=== PATIENT | female | born 1960 | race African-American/Black ===

== ENCOUNTER 2018-07-02 05:27 | Inpatient (IN) ==
[2018-07-02] MEDS ORDERED: FAMOTIDINE 20 MG TABLET PO ONE (07:06)
[2018-07-02] MEDS ORDERED: DIAZEPAM 5 MG TABLET PO ONE (07:06)
[2018-07-02] MEDS ORDERED: VANCOMYCIN 1,000 MG VIAL ONE (08:22)
[2018-07-02] MEDS ORDERED: DIAZEPAM 5 MG TABLET ONE (08:22)
[2018-07-02] MEDS ORDERED: FAMOTIDINE 20 MG TABLET ONE (08:23)
[2018-07-02] MEDS ORDERED: ceFAZolin 2,000 MG in PREMIX 1 EACH IV ONE (09:00)
[2018-07-02] MEDS ORDERED: VANCOMYCIN INJ 1,000 MG in SODIUM CHLORIDE 0.9% 250 ML IV ONE (09:00)
[2018-07-02] MEDS ORDERED: ROPIVACAINE 0.5% 30 ML VIAL ONE (09:44)
[2018-07-02] MEDS: LACTATED RINGERS 1,000 ML IV SCH (10:10)
[2018-07-02] MEDS ORDERED: ZALEPLON 5 MG CAPSULE PO PRN (10:32)
[2018-07-02] MEDS ORDERED: ONDANSETRON 4 MG/2 ML VIAL IV PRN (10:32)
[2018-07-02] MEDS ORDERED: diphenhydrAMINE CAP 25 MG CAPSULE PO PRN (10:32)
[2018-07-02] MEDS ORDERED: HYDROmorphone 2 MG/1 ML VIAL IV PRN ×2 (10:32)
[2018-07-02] MEDS ORDERED: oxyCODONE IR 5 MG TABLET PO PRN (10:32)
[2018-07-02] MEDS ORDERED: PROPOFOL 200 MG/20 ML VIAL IV ONE (12:34)
[2018-07-02] MEDS ORDERED: MIDAZOLAM 2 MG/2 ML VIAL ONE (12:34)
[2018-07-02] MEDS ORDERED: ACETAMINOPHEN 1,000 MG/100 ML VIAL IV ONE (12:35)
[2018-07-02] MEDS ORDERED: ROCURONIUM 100 MG/10 ML VIAL IV ONE (12:35)
[2018-07-02] MEDS ORDERED: PHENYLEPHRINE 1 MG/10 ML SYRINGE IV ONE (12:35)
[2018-07-02] MEDS ORDERED: DEXAMETHASONE 10 MG/1 ML VIAL ONE (12:35)
[2018-07-02] MEDS ORDERED: fentaNYL 100 MCG/2 ML VIAL ONE (12:35)
[2018-07-02] MEDS ORDERED: SEVOFLURANE 1 UNIT/15 MINUTE INH ONE (12:41)
[2018-07-02 15:13] LABS: Basophils % 0.2 % (0.0-0.8); Eosinophils % 0.1 % (0.00-10.9); Hematocrit 35.4 VOL% (35.7-47.0); Hemoglobin 11.2 GM/DL (12.0-16.0); Immature Granulocytes % 0.6 %; Immature Granulocytes Absolute 0.08 #; Lymphocytes # 0.7 10*3/uL (1.4-4.0); Lymphocytes % 5.6 % (21.3-54.2); Mean Corpuscular HGB Conc 31.6 GM/DL (32-36); Mean Corpuscular Hemoglobin 32 PG (27-34); Mean Corpuscular Volume 101.4 FL (87-102); Mean Platelet Volume 10.1 FL (9.6-12.0); Monocytes # 0.2 10*3/uL (0.11-0.8); Monocytes % 1.6 % (1.7-12.7); Neutrophils # 11.8 10*3/uL (1.4-7.4); Neutrophils % 91.9 % (38.7-73.9); Platelet Count 294 T/CUMM (130-400); Red Blood Count 3.49 MC/CUMM (3.8-5.5); Red Cell Distribution Width 17.9 % (9.3-17.3); White Blood Count 12.9 T/CUMM (4-12)
[2018-07-02 15:31] LABS: Calcium 9.5 MG/DL (8.5-10.1); Osmolality,Calculated 281.4 MOS/KG (273-304); Potassium 4.4 MMOL/L (3.5-5.1)
[2018-07-02] MEDS: ACETAMINOPHEN 500 MG TABLET PO SCH ×2 (17:04→21:35)
[2018-07-02] MEDS: KETOROLAC 30 MG/1 ML VIAL IV SCH ×2 (17:05→23:36)
[2018-07-02 19:13] LABS: Lymphocytes 5 % (20-55); Segmented Neutrophils 94 % (50-85)
[2018-07-02 19:14] LABS: Hypochromasia 1+; Macrocytosis 1+
[2018-07-02 19:18] LABS: Anisocytosis 1+; Platelet Estimate Normal
[2018-07-02 19:19] LABS: Total Cells Counted 100
[2018-07-02] MEDS: ceFAZolin 2,000 MG in PREMIX 1 EACH IV SCH (19:22)
[2018-07-02] MEDS: oxyCODONE IR 5 MG TABLET PO PRN (21:35)
[2018-07-02] MEDS: sulfaSALAzine 500 MG TABLET PO SCH (21:36)
[2018-07-02] MEDS: DOCUSATE SODIUM 100 MG CAPSULE PO SCH (21:36)
[2018-07-03] MEDS: ceFAZolin 2,000 MG in PREMIX 1 EACH IV SCH (03:07)
[2018-07-03] MEDS: ACETAMINOPHEN 500 MG TABLET PO SCH ×2 (03:07→08:15)
[2018-07-03] MEDS: LACTATED RINGERS 1,000 ML IV SCH (03:43)
[2018-07-03 05:57] LABS: Basophils % 0.1 % (0.0-0.8); Hematocrit 27.4 VOL% (35.7-47.0); Immature Granulocytes % 0.6 %; Immature Granulocytes Absolute 0.06 #; Lymphocytes # 1.9 10*3/uL (1.4-4.0); Lymphocytes % 19.6 % (21.3-54.2); Mean Corpuscular HGB Conc 31.4 GM/DL (32-36); Mean Corpuscular Hemoglobin 32 PG (27-34); Mean Corpuscular Volume 101.1 FL (87-102); Mean Platelet Volume 9.7 FL (9.6-12.0); Monocytes # 1.4 10*3/uL (0.11-0.8); Neutrophils # 6.3 10*3/uL (1.4-7.4); Neutrophils % 65.7 % (38.7-73.9); Platelet Count 339 T/CUMM (130-400); Red Cell Distribution Width 17.4 % (9.3-17.3); White Blood Count 9.6 T/CUMM (4-12)
[2018-07-03] MEDS: KETOROLAC 30 MG/1 ML VIAL IV SCH ×2 (06:07→12:07)
[2018-07-03] MEDS: FONDAPARINUX 2.5 MG/0.5 ML SYRINGE SUBCUT SCH (06:07)
[2018-07-03 06:13] LABS: Red Blood Count 2.71 MC/CUMM (3.8-5.5)
[2018-07-03 06:14] LABS: Hemoglobin 8.6 GM/DL (12.0-16.0)
[2018-07-03 06:18] LABS: Calcium 8.5 MG/DL (8.5-10.1); Osmolality,Calculated 276.7 MOS/KG (273-304); Potassium 4.1 MMOL/L (3.5-5.1)
[2018-07-03] MEDS: oxyCODONE IR 5 MG TABLET PO PRN (07:30)
[2018-07-03] MEDS: sulfaSALAzine 500 MG TABLET PO SCH ×2 (08:14→22:01)
[2018-07-03] MEDS: OXYBUTYNIN 5 MG TABLET PO SCH (08:15)
[2018-07-03] MEDS: CHOLECALCIFEROL 1,000 UNIT TABLET PO SCH (08:15)
[2018-07-03] MEDS: predniSONE 5 MG TABLET PO SCH (08:15)
[2018-07-03] MEDS: DOCUSATE SODIUM 100 MG CAPSULE PO SCH ×2 (08:15→22:01)
[2018-07-03] MEDS: LISINOPRIL 20 MG TABLET PO SCH (08:16)
[2018-07-03] MEDS: FOLIC ACID 1 MG TABLET PO SCH (08:16)
[2018-07-03] MEDS: amLODIPine 2.5 MG TABLET PO SCH (08:17)
[2018-07-03] MEDS: CELECOXIB 200 MG CAPSULE PO SCH (17:07)
[2018-07-04 05:07] LABS: Basophils % 0.2 % (0.0-0.8); Eosinophils % 0.5 % (0.00-10.9); Hematocrit 24.8 VOL% (35.7-47.0); Hemoglobin 7.7 GM/DL (12.0-16.0); Immature Granulocytes % 0.3 %; Immature Granulocytes Absolute 0.03 #; Lymphocytes # 2.6 10*3/uL (1.4-4.0); Mean Corpuscular Hemoglobin 32 PG (27-34); Mean Corpuscular Volume 102.5 FL (87-102); Mean Platelet Volume 9.5 FL (9.6-12.0); Monocytes # 1.4 10*3/uL (0.11-0.8); Monocytes % 15.7 % (1.7-12.7); Neutrophils # 4.6 10*3/uL (1.4-7.4); Neutrophils % 53.3 % (38.7-73.9); Platelet Count 295 T/CUMM (130-400); Red Blood Count 2.42 MC/CUMM (3.8-5.5); Red Cell Distribution Width 17.2 % (9.3-17.3); White Blood Count 8.7 T/CUMM (4-12)
[2018-07-04 05:35] LABS: Atypical Lymphocytes Few; Eosinophils 1 % (0-10); Lymphocytes 28 % (20-55); Segmented Neutrophils 57 % (50-85); Total Cells Counted 100
[2018-07-04 05:36] LABS: Hypochromasia 1+; Macrocytosis 1+; Ovalocytes Slight
[2018-07-04] MEDS: FONDAPARINUX 2.5 MG/0.5 ML SYRINGE SUBCUT SCH (07:15)
[2018-07-04] MEDS: predniSONE 5 MG TABLET PO SCH (09:20)
[2018-07-04] MEDS: FOLIC ACID 1 MG TABLET PO SCH (09:20)
[2018-07-04] MEDS: amLODIPine 2.5 MG TABLET PO SCH (09:20)
[2018-07-04] MEDS: FERROUS SULFATE 325 MG TABLET PO SCH ×2 (09:20→20:40)
[2018-07-04] MEDS: CHOLECALCIFEROL 1,000 UNIT TABLET PO SCH (09:20)
[2018-07-04] MEDS: CELECOXIB 200 MG CAPSULE PO SCH (09:20)
[2018-07-04] MEDS: sulfaSALAzine 500 MG TABLET PO SCH ×2 (09:21→20:40)
[2018-07-04] MEDS: OXYBUTYNIN 5 MG TABLET PO SCH (09:21)
[2018-07-04] MEDS: DOCUSATE SODIUM 100 MG CAPSULE PO SCH ×2 (09:21→20:41)
[2018-07-04] MEDS: LISINOPRIL 20 MG TABLET PO SCH (09:21)
[2018-07-04] MEDS: MAGNESIUM HYDROXIDE SUSP 30 ML UDCUP PO PRN ×2 (14:58→20:41)
[2018-07-05 06:00] LABS: Basophils % 0.2 % (0.0-0.8); Eosinophils # 0.1 10*3/uL (0.0-0.87); Eosinophils % 1.4 % (0.00-10.9); Hematocrit 26.4 VOL% (35.7-47.0); Hemoglobin 8.2 GM/DL (12.0-16.0); Immature Granulocytes % 0.2 %; Immature Granulocytes Absolute 0.02 #; Lymphocytes # 2.3 10*3/uL (1.4-4.0); Lymphocytes % 26.1 % (21.3-54.2); Mean Corpuscular HGB Conc 31.1 GM/DL (32-36); Mean Corpuscular Hemoglobin 32 PG (27-34); Mean Corpuscular Volume 102.3 FL (87-102); Mean Platelet Volume 9.3 FL (9.6-12.0); Monocytes # 1.5 10*3/uL (0.11-0.8); Neutrophils # 4.8 10*3/uL (1.4-7.4); Neutrophils % 55.1 % (38.7-73.9); Platelet Count 300 T/CUMM (130-400); Red Blood Count 2.58 MC/CUMM (3.8-5.5); Red Cell Distribution Width 17.2 % (9.3-17.3); White Blood Count 8.6 T/CUMM (4-12)
[2018-07-05 06:40] LABS: Eosinophils 1 % (0-10); Lymphocytes 20 % (20-55); Platelet Estimate Adequate; Segmented Neutrophils 61 % (50-85); Total Cells Counted 100
[2018-07-05 06:41] LABS: Hypochromasia 1+; Macrocytosis Slight; Ovalocytes Slight
[2018-07-05] MEDS: FONDAPARINUX 2.5 MG/0.5 ML SYRINGE SUBCUT SCH (07:16)
[2018-07-05] MEDS ORDERED: BISACODYL 5 MG TABLET PO PRN (08:42)
[2018-07-05] MEDS: CHOLECALCIFEROL 1,000 UNIT TABLET PO SCH (09:04)
[2018-07-05] MEDS: DOCUSATE SODIUM 100 MG CAPSULE PO SCH (09:04)
[2018-07-05] MEDS: CELECOXIB 200 MG CAPSULE PO SCH (09:04)
[2018-07-05] MEDS: sulfaSALAzine 500 MG TABLET PO SCH (09:04)
[2018-07-05] MEDS: LISINOPRIL 20 MG TABLET PO SCH (09:05)
[2018-07-05] MEDS: FERROUS SULFATE 325 MG TABLET PO SCH (09:05)
[2018-07-05] MEDS: amLODIPine 2.5 MG TABLET PO SCH (09:05)
[2018-07-05] MEDS: predniSONE 5 MG TABLET PO SCH (09:05)
[2018-07-05] MEDS: OXYBUTYNIN 5 MG TABLET PO SCH (09:05)
[2018-07-05] MEDS: FOLIC ACID 1 MG TABLET PO SCH (09:05)
[2018-07-05 11:53] VITALS: BP 130/64
== END 2018-07-05 12:58 | disposition home health service (06) | DRG 470 ==
LOC: N.SDS 05:27 → N.SDSINP 05:28 → N.3E 14:30
PROVIDERS: ADMIT Orthopaedic Surgery; ATTEND Orthopaedic Surgery

== ENCOUNTER 2020-11-23 05:37 | Inpatient (IN) ==
[2020-11-23] MEDS ORDERED: VANCOMYCIN INJ 1,000 MG in SODIUM CHLORIDE 0.9% 250 ML IV ONE ×2 (06:00→15:20)
[2020-11-23] MEDS ORDERED: LIDOCAINE 2% 5 ML VIAL ONE (06:17)
[2020-11-23] MEDS ORDERED: ROCURONIUM 50 MG/5 ML VIAL IV ONE (06:17)
[2020-11-23] MEDS ORDERED: fentaNYL 100 MCG/2 ML VIAL ONE ×2 (06:17→08:01)
[2020-11-23] MEDS ORDERED: propofoL 200 MG/20 ML VIAL IV ONE (06:17)
[2020-11-23] MEDS ORDERED: MIDAZOLAM 2 MG/2 ML VIAL ONE (06:17)
[2020-11-23] MEDS ORDERED: LIDOCAINE 1% 5 ML VIAL ONE (06:19)
[2020-11-23] MEDS ORDERED: ROPIVACAINE 0.5% 30 ML VIAL ONE (06:19)
[2020-11-23] MEDS ORDERED: DEXAMETHASONE 4 MG/1 ML VIAL ONE (06:19)
[2020-11-23] MEDS ORDERED: FAMOTIDINE 20 MG/2 ML VIAL IV ONE (06:39)
[2020-11-23] MEDS ORDERED: HYDROCORTISONE 100 MG VIAL ONE (06:39)
[2020-11-23] MEDS ORDERED: BACITRACIN OINT 0.9 GM PACK TOP ONE (06:41)
[2020-11-23] MEDS ORDERED: MAGNESIUM HYDROXIDE SUSP 30 ML UDCUP PO PRN (07:19)
[2020-11-23] MEDS ORDERED: ONDANSETRON 4 MG/2 ML VIAL IV PRN ×2 (07:20→10:28)
[2020-11-23] MEDS ORDERED: HYDROmorphone 2 MG/1 ML VIAL IV PRN (07:20)
[2020-11-23] MEDS ORDERED: oxyCODONE IR 5 MG TABLET PO PRN (07:20)
[2020-11-23] MEDS ORDERED: diphenhydrAMINE CAP 25 MG CAPSULE PO PRN (07:20)
[2020-11-23] MEDS ORDERED: ZALEPLON 5 MG CAPSULE PO PRN (07:20)
[2020-11-23] MEDS ORDERED: LACTATED RINGERS 1,000 ML IV SCH (07:30)
[2020-11-23] MEDS ORDERED: SUCCINYLCHOLINE 200 MG/10 ML VIAL ONE (07:35)
[2020-11-23] MEDS ORDERED: ACETAMINOPHEN INJ 1,000 MG/100 ML VIAL IV ONE (07:35)
[2020-11-23] MEDS ORDERED: SEVOFLURANE 1 UNIT/15 MINUTE INH ONE ×10 (07:35→09:35)
[2020-11-23] MEDS ORDERED: ONDANSETRON 4 MG/2 ML VIAL ONE (07:35)
[2020-11-23] MEDS ORDERED: TRANEXAMIC ACID 1,000 MG/10 ML VIAL ONE (07:59)
[2020-11-23] MEDS ORDERED: PHENYLEPHRINE 1 MG/10 ML SYRINGE IV ONE ×2 (08:27→09:35)
[2020-11-23] MEDS ORDERED: SODIUM CHLORIDE 0.9% 250 ML IV ONE (09:16)
[2020-11-23] MEDS ORDERED: LACTATED RINGERS 1,000 ML IV ONE (09:16)
[2020-11-23] MEDS ORDERED: NEOSTIGMINE 10 MG/10 ML VIAL ONE (09:28)
[2020-11-23] MEDS ORDERED: GLYCOPYRROLATE 0.4 MG/2 ML VIAL ONE (09:28)
[2020-11-23 10:17] LABS: Bacteria,Urine Occasional /HPF (Few); Bilirubin,Urine Negative (Negative); Blood, Urine Negative (Negative); Glucose,Urine (UA) Negative (Negative); Ketones,Urine Negative (Negative); Mucus,Urine Occasional /LPF (Occasional); Nitrite,Urine Negative (Negative); Protein,Urine Negative; RBC,Urine 1 /HPF (0-4); Squamous Epithelial Cell,Urine Occasional /HPF (0-10); Urine Appearance CLEAR (Clear); Urine Color Yellow (Yellow); Urine Urobilinogen < 2.0 EU/DL (0.2-1.0)
[2020-11-23] MEDS: HYDROmorphone 2 MG/1 ML VIAL IV PRN ×4 (10:24→14:42)
[2020-11-23] MEDS: KETOROLAC 30 MG/1 ML VIAL IV SCH ×2 (11:03→17:28)
[2020-11-23] MEDS ORDERED: ceFAZolin 2,000 MG/50 ML DUPLEX IV SCH (11:30)
[2020-11-23] MEDS: LACTATED RINGERS 1,000 ML IV SCH ×3 (12:05→21:31)
[2020-11-23] MEDS: DOCUSATE SODIUM 100 MG CAPSULE PO SCH (21:23)
[2020-11-23] MEDS: APIXABAN 2.5 MG TABLET PO SCH (21:23)
[2020-11-23] MEDS: oxyCODONE/ACETAMINOPHEN 5-325 MG TABLET PO PRN (21:23)
[2020-11-23] MEDS: ceFAZolin 2,000 MG/50 ML DUPLEX IV SCH (21:24)
[2020-11-24] MEDS: KETOROLAC 30 MG/1 ML VIAL IV SCH ×2 (00:20→05:26)
[2020-11-24] MEDS: ceFAZolin 2,000 MG/50 ML DUPLEX IV SCH ×3 (05:26→20:09)
[2020-11-24] MEDS: LACTATED RINGERS 1,000 ML IV SCH (05:27)
[2020-11-24] MEDS ORDERED: KETOROLAC 30 MG/1 ML VIAL IV SCH (05:30)
[2020-11-24 05:42] LABS: Basophils % 0.2 % (0.0-0.8); Hematocrit 26.5 VOL% (35.7-47.0); Hemoglobin 8.4 GM/DL (12.0-16.0); Immature Granulocytes % 0.5 %; Immature Granulocytes Absolute 0.06 #; Lymphocytes # 1.9 10*3/uL (1.4-4.0); Lymphocytes % 14.6 % (21.3-54.2); Mean Corpuscular HGB Conc 31.7 GM/DL (32-36); Mean Corpuscular Volume 102.3 FL (87-102); Mean Platelet Volume 11.2 FL (9.6-12.0); Monocytes % 12.2 % (1.7-12.7); Neutrophils % 72.5 % (38.7-73.9); Platelet Count 228 T/CUMM (130-400); Red Blood Count 2.59 MC/CUMM (3.8-5.5); Red Cell Distribution Width 15.5 % (9.3-17.3); White Blood Count 12.7 T/CUMM (4-12)
[2020-11-24 06:00] LABS: Calcium 8.9 MG/DL (8.5-10.1); Osmolality,Calculated 278.4 MOS/KG (273-304); Potassium 4.2 MMOL/L (3.5-5.1)
[2020-11-24 06:03] LABS: Hypochromasia 1+; Microcytosis 1+; Platelet Estimate Adequate
[2020-11-24] MEDS: lisinopriL 20 MG TABLET PO SCH (08:29)
[2020-11-24] MEDS: DULoxetine 30 MG CAPSULE PO SCH (08:29)
[2020-11-24] MEDS: amLODIPine 2.5 MG TABLET PO SCH (08:29)
[2020-11-24] MEDS: DOCUSATE SODIUM 100 MG CAPSULE PO SCH ×2 (08:29→20:09)
[2020-11-24] MEDS: FOLIC ACID 1 MG TABLET PO SCH (08:29)
[2020-11-24] MEDS: APIXABAN 2.5 MG TABLET PO SCH ×2 (08:29→20:09)
[2020-11-24] MEDS: HYDROmorphone 2 MG/1 ML VIAL IV PRN ×2 (08:30→14:00)
[2020-11-24] MEDS: FUROSEMIDE 40 MG TABLET PO SCH (15:32)
[2020-11-24] MEDS: oxyCODONE/ACETAMINOPHEN 5-325 MG TABLET PO PRN (18:30)
[2020-11-25] MEDS: oxyCODONE/ACETAMINOPHEN 5-325 MG TABLET PO PRN ×2 (03:36→21:06)
[2020-11-25 04:58] LABS: Basophils % 0.3 % (0.0-0.8); Eosinophils # 0.1 10*3/uL (0.0-0.87); Eosinophils % 0.5 % (0.00-10.9); Hematocrit 23.8 VOL% (35.7-47.0); Hemoglobin 7.6 GM/DL (12.0-16.0); Immature Granulocytes % 0.4 %; Immature Granulocytes Absolute 0.04 #; Lymphocytes # 1.8 10*3/uL (1.4-4.0); Lymphocytes % 17.3 % (21.3-54.2); Mean Corpuscular HGB Conc 31.9 GM/DL (32-36); Mean Corpuscular Volume 100.8 FL (87-102); Mean Platelet Volume 10.3 FL (9.6-12.0); Monocytes % 15.1 % (1.7-12.7); Neutrophils % 66.4 % (38.7-73.9); Platelet Count 238 T/CUMM (130-400); Red Blood Count 2.36 MC/CUMM (3.8-5.5); Red Cell Distribution Width 15.5 % (9.3-17.3); White Blood Count 10.6 T/CUMM (4-12)
[2020-11-25] MEDS: ceFAZolin 2,000 MG/50 ML DUPLEX IV SCH ×3 (05:02→21:03)
[2020-11-25] MEDS: amLODIPine 2.5 MG TABLET PO SCH (08:54)
[2020-11-25] MEDS: lisinopriL 20 MG TABLET PO SCH (08:55)
[2020-11-25] MEDS: FUROSEMIDE 40 MG TABLET PO SCH ×2 (08:55→17:28)
[2020-11-25] MEDS: DULoxetine 30 MG CAPSULE PO SCH (09:00)
[2020-11-25] MEDS ORDERED: SODIUM CHLORIDE 0.9% 1,000 ML IV PRN (09:00)
[2020-11-25] MEDS: APIXABAN 2.5 MG TABLET PO SCH (09:00)
[2020-11-25] MEDS: DOCUSATE SODIUM 100 MG CAPSULE PO SCH ×2 (09:00→21:03)
[2020-11-25] MEDS ORDERED: VANCOMYCIN INJ 2,000 MG in SODIUM CHLORIDE 0.9% 500 ML IV ONE ×2 (09:00→22:00)
[2020-11-25] MEDS: FOLIC ACID 1 MG TABLET PO SCH (09:02)
[2020-11-25] MEDS ORDERED: fentaNYL 100 MCG/2 ML VIAL ONE (10:43)
[2020-11-25] MEDS ORDERED: MIDAZOLAM 2 MG/2 ML VIAL ONE (10:43)
[2020-11-25] MEDS ORDERED: ROPIVACAINE 0.5% 30 ML VIAL ONE (11:59)
[2020-11-25] MEDS ORDERED: DEXAMETHASONE 4 MG/1 ML VIAL ONE (11:59)
[2020-11-25] MEDS ORDERED: PHENYLEPHRINE 10 MG/1 ML VIAL IV ONE (13:39)
[2020-11-25] MEDS ORDERED: ceFAZolin 1,000 MG VIAL ONE (13:45)
[2020-11-25] MEDS ORDERED: SUGAMMADEX 200 MG/2 ML VIAL IV ONE (14:36)
[2020-11-25] MEDS ORDERED: SEVOFLURANE 1 UNIT/15 MINUTE INH ONE (14:37)
[2020-11-25] MEDS ORDERED: SUCCINYLCHOLINE 200 MG/10 ML VIAL ONE (14:37)
[2020-11-25] MEDS ORDERED: SODIUM CHLORIDE 0.9% 100 ML IV ONE (14:37)
[2020-11-25] MEDS ORDERED: ONDANSETRON 4 MG/2 ML VIAL ONE (14:37)
[2020-11-25] MEDS ORDERED: LACTATED RINGERS 1,000 ML IV ONE (14:37)
[2020-11-25] MEDS ORDERED: TRANEXAMIC ACID 1,000 MG/10 ML VIAL ONE (14:37)
[2020-11-25] MEDS ORDERED: propofoL 200 MG/20 ML VIAL IV ONE (14:37)
[2020-11-25] MEDS ORDERED: LIDOCAINE 2% 5 ML VIAL ONE (14:37)
[2020-11-25] MEDS ORDERED: ROCURONIUM 50 MG/5 ML VIAL IV ONE (14:37)
[2020-11-25] MEDS ORDERED: SODIUM CHLORIDE 0.9% 250 ML IV ONE (14:37)
[2020-11-25] MEDS ORDERED: HYDROmorphone 2 MG/1 ML VIAL ONE (14:55)
[2020-11-25] MEDS ORDERED: MEPERIDINE 25 MG/1 ML VIAL IV PRN (15:29)
[2020-11-25 16:40] LABS: Hematocrit 36.3 VOL% (35.7-47.0); Hemoglobin 11.8 GM/DL (12.0-16.0)
[2020-11-25] MEDS: LACTATED RINGERS 1,000 ML IV SCH (16:45)
[2020-11-26] MEDS: ceFAZolin 2,000 MG/50 ML DUPLEX IV SCH (05:22)
[2020-11-26] MEDS: LACTATED RINGERS 1,000 ML IV SCH (05:27)
[2020-11-26 06:16] LABS: Basophils % 0.1 % (0.0-0.8); Hematocrit 32.5 VOL% (35.7-47.0); Hemoglobin 10.6 GM/DL (12.0-16.0); Immature Granulocytes % 0.6 %; Immature Granulocytes Absolute 0.08 #; Mean Corpuscular HGB Conc 32.6 GM/DL (32-36); Mean Corpuscular Volume 96.4 FL (87-102); Mean Platelet Volume 10.2 FL (9.6-12.0); Monocytes % 10.8 % (1.7-12.7); Neutrophils % 81.5 % (38.7-73.9); Platelet Count 205 T/CUMM (130-400); Red Blood Count 3.37 MC/CUMM (3.8-5.5); Red Cell Distribution Width 15.2 % (9.3-17.3); White Blood Count 14.2 T/CUMM (4-12)
[2020-11-26] MEDS: FUROSEMIDE 40 MG TABLET PO SCH ×2 (08:32→16:17)
[2020-11-26] MEDS: FOLIC ACID 1 MG TABLET PO SCH (08:32)
[2020-11-26] MEDS: DOCUSATE SODIUM 100 MG CAPSULE PO SCH ×2 (08:32→20:54)
[2020-11-26] MEDS: DULoxetine 30 MG CAPSULE PO SCH (08:32)
[2020-11-26] MEDS: amLODIPine 2.5 MG TABLET PO SCH (08:32)
[2020-11-26] MEDS: HYDROmorphone 2 MG/1 ML VIAL IV PRN (08:33)
[2020-11-26] MEDS: lisinopriL 20 MG TABLET PO SCH (08:33)
[2020-11-26] MEDS: APIXABAN 2.5 MG TABLET PO SCH ×2 (09:44→20:54)
[2020-11-26] MEDS: oxyCODONE/ACETAMINOPHEN 5-325 MG TABLET PO PRN ×3 (11:44→23:52)
[2020-11-26] MEDS: CALCIUM (CARBONATE) 500 MG TABLET PO SCH (16:17)
[2020-11-27] MEDS: lisinopriL 20 MG TABLET PO SCH (08:22)
[2020-11-27] MEDS: APIXABAN 2.5 MG TABLET PO SCH (08:22)
[2020-11-27] MEDS: CALCIUM (CARBONATE) 500 MG TABLET PO SCH (08:22)
[2020-11-27] MEDS: DOCUSATE SODIUM 100 MG CAPSULE PO SCH (08:22)
[2020-11-27] MEDS: FUROSEMIDE 40 MG TABLET PO SCH (08:22)
[2020-11-27] MEDS: amLODIPine 2.5 MG TABLET PO SCH (08:22)
[2020-11-27] MEDS: FOLIC ACID 1 MG TABLET PO SCH (08:22)
[2020-11-27] MEDS: DULoxetine 30 MG CAPSULE PO SCH (08:22)
[2020-11-27] MEDS: HYDROmorphone 2 MG/1 ML VIAL IV PRN (08:40)
[2020-11-27 11:29] VITALS: BP 128/84
== END 2020-11-27 13:13 | disposition home health service (06) | DRG 467 ==
LOC: N.OR 05:37 → N.SDSINP 05:39 → N.3E 13:10
PROVIDERS: ADMIT Orthopaedic Surgery; ATTEND Orthopaedic Surgery

== ENCOUNTER 2021-06-09 09:35 | Inpatient (IN) ==
[2021-06-09] MEDS ORDERED: cefTRIAXone 1,000 MG in SODIUM CHLORIDE 0.9% 100 ML IV STA (09:37)
[2021-06-09] MEDS ORDERED: AZITHROMYCIN INJ 500 MG in SODIUM CHLORIDE 0.9% 250 ML IV STA (09:37)
[2021-06-09] MEDS ORDERED: FUROSEMIDE 40 MG/4 ML VIAL ONE (09:56)
[2021-06-09] MEDS ORDERED: ALBUTEROL/IPRATROPIUM 3 ML NEB RESP TX STA (09:57)
[2021-06-09 10:13] LABS: Basophils % 0.1 % (0.0-0.8); Eosinophils % 0.1 % (0.00-10.9); Hematocrit 22.6 VOL% (35.7-47.0); Hemoglobin 7.3 GM/DL (12.0-16.0); Immature Granulocytes % 1.5 %; Immature Granulocytes Absolute 0.22 #; Lymphocytes # 2.5 10*3/uL (1.4-4.0); Lymphocytes % 16.2 % (21.3-54.2); Mean Corpuscular HGB Conc 32.3 GM/DL (32-36); Mean Corpuscular Volume 101.8 FL (87-102); Mean Platelet Volume 10.5 FL (9.6-12.0); Monocytes % 8.2 % (1.7-12.7); NRBC # 0.18 10*3/uL; Neutrophils % 73.9 % (38.7-73.9); Platelet Count 501 T/CUMM (130-400); Red Blood Count 2.22 MC/CUMM (3.8-5.5); Red Cell Distribution Width 14.7 % (9.3-17.3); White Blood Count 15.2 T/CUMM (4-12)
[2021-06-09 10:37] LABS: Albumin 2.6 G/DL (3.4-5.0); Bilirubin,Total 0.6 MG/DL (0.20-1.00); Calcium 9.1 MG/DL (8.5-10.1); Osmolality,Calculated 288.3 MOS/KG (273-304); Potassium 4.8 MMOL/L (3.5-5.1); Total Protein 7.8 G/DL (6.4-8.2)
[2021-06-09] MEDS ORDERED: SODIUM CHLORIDE 0.9% 1,000 ML IV PRN ×2 (10:37→15:39)
[2021-06-09] MEDS ORDERED: ALBUTEROL 2.5 MG/3 ML NEB RESP TX PRN (11:06)
[2021-06-09] MEDS ORDERED: guaiFENesin/DM ER 600-30 MG TABLET PO PRN (11:06)
[2021-06-09] MEDS ORDERED: MELATONIN 3 MG TABLET PO PRN (11:09)
[2021-06-09] MEDS ORDERED: GLUCAGON 1 MG VIAL IM PRN (11:09)
[2021-06-09] MEDS ORDERED: DEXTROSE 10% 25 GM/250 ML BAG IV PRN (11:13)
[2021-06-09] MEDS ORDERED: ROCURONIUM 100 MG/10 ML VIAL IV ONE (11:40)
[2021-06-09] MEDS ORDERED: ETOMIDATE 20 MG/10 ML VIAL IV ONE (11:40)
[2021-06-09 11:43] LABS: ABG Oxygen Saturation 90.9 % (95-100)
[2021-06-09 11:44] LABS: ABG Base Excess -3.2 MMOL/L (-2.5-2.5); ABG HCO3 21.6 MMOL/L (20-26); ABG PCO2 26.8 MM HG (35-48); ABG PH 7.465 (7.35-7.45); ABG PO2 66.5 MM HG (80-95)
[2021-06-09] MEDS ORDERED: fentaNYL INJ 1,250 MCG in SODIUM CHLORIDE 0.9% 225 ML IV PRN (13:33)
[2021-06-09] MEDS ORDERED: VANCOMYCIN INJ 1,500 MG in SODIUM CHLORIDE 0.9% 500 ML IV SCH (15:00)
[2021-06-09] MEDS: CEFEPIME 1,000 MG in SODIUM CHLORIDE 0.9% 100 ML IV SCH ×2 (15:30→20:33)
[2021-06-09] MEDS: ACETAMINOPHEN 325 MG TABLET PO PRN (15:30)
[2021-06-09] MEDS: methylPREDNISolone SOD SUC 40 MG/1 ML VIAL IV SCH ×2 (15:30→20:30)
[2021-06-09] MEDS: metroNIDAZOLE INJ 500 MG/100 ML PREMIX IV SCH ×2 (15:30→22:14)
[2021-06-09] MEDS: ENOXAPARIN 60 MG/0.6 ML SYRINGE SUBCUT SCH (15:30)
[2021-06-09] MEDS: FAMOTIDINE 20 MG/2 ML VIAL IV SCH ×2 (15:30→22:37)
[2021-06-09] MEDS: INSULIN REGULAR 100 UNIT/ML SUBCUT SCH ×2 (15:43→18:15)
[2021-06-09] MEDS ORDERED: FUROSEMIDE 40 MG/4 ML VIAL IV SCH (16:00)
[2021-06-09 17:43] LABS: Ferritin 809.9 ng/mL (8-252); Free T4 (Free Thyroxine) 1.11 NG/DL (0.76-1.46); Thyroid Stimulating Hormone 4.49 uIU/ml (0.358-3.74)
[2021-06-09] MEDS ORDERED: NOREPINEPHRINE 8 MG in SODIUM CHLORIDE 0.9% 242 ML IV PRN (17:48)
[2021-06-09 18:20] LABS: Basophils % 0.1 % (0.0-0.8); Hematocrit 32.9 VOL% (35.7-47.0); Hemoglobin 10.6 GM/DL (12.0-16.0); Immature Granulocytes % 1.3 %; Immature Granulocytes Absolute 0.19 #; Lymphocytes % 7.2 % (21.3-54.2); Mean Corpuscular HGB Conc 32.2 GM/DL (32-36); Mean Corpuscular Volume 100.6 FL (87-102); Mean Platelet Volume 9.8 FL (9.6-12.0); Monocytes % 4.3 % (1.7-12.7); NRBC # 0.25 10*3/uL; Neutrophils % 87.1 % (38.7-73.9); Platelet Count 240 T/CUMM (130-400); Red Blood Count 3.27 MC/CUMM (3.8-5.5); Red Cell Distribution Width 14.8 % (9.3-17.3); White Blood Count 14.4 T/CUMM (4-12)
[2021-06-09 19:24] LABS: Sedimentation Rate-Westergren 108 MM/HR (0-30)
[2021-06-09] MEDS: ASCORBIC ACID 500 MG TABLET PO SCH (20:39)
[2021-06-09 23:42] LABS: Folate 22.41 NG/ML (5.38-24.0); Vitamin B12 1695 PG/ML (211-911)
[2021-06-10] MEDS: INSULIN REGULAR 100 UNIT/ML SUBCUT SCH ×4 (00:19→17:40)
[2021-06-10] MEDS: ENOXAPARIN 60 MG/0.6 ML SYRINGE SUBCUT SCH (00:19)
[2021-06-10] MEDS ORDERED: FUROSEMIDE 40 MG/4 ML VIAL IV ONE (01:43)
[2021-06-10 04:24] LABS: Allen Test Positive; Pt O2 Delivery Device Ventilator
[2021-06-10 04:25] LABS: ABG Base Excess -0.5 MMOL/L (-2.5-2.5); ABG HCO3 22.7 MMOL/L (20-26); ABG Oxygen Saturation 97.7 % (95-100); ABG PCO2 33.2 MM HG (35-48); ABG PH 7.452 (7.35-7.45); ABG PO2 108.1 MM HG (80-95); ABG TCO2 23.7 MMOL/L (23-27)
[2021-06-10 04:43] LABS: Basophils % 0.1 % (0.0-0.8); Hematocrit 34.1 VOL% (35.7-47.0); Hemoglobin 10.9 GM/DL (12.0-16.0); Immature Granulocytes % 1.1 %; Immature Granulocytes Absolute 0.17 #; Lymphocytes # 1.1 10*3/uL (1.4-4.0); Mean Corpuscular Volume 100.3 FL (87-102); Mean Platelet Volume 9.8 FL (9.6-12.0); Monocytes % 3.2 % (1.7-12.7); NRBC # 0.27 10*3/uL; Neutrophils % 88.6 % (38.7-73.9); Platelet Count 239 T/CUMM (130-400); Red Cell Distribution Width 14.7 % (9.3-17.3); White Blood Count 15.1 T/CUMM (4-12)
[2021-06-10] MEDS: methylPREDNISolone SOD SUC 40 MG/1 ML VIAL IV SCH ×3 (04:49→20:12)
[2021-06-10] MEDS: CEFEPIME 1,000 MG in SODIUM CHLORIDE 0.9% 100 ML IV SCH ×3 (04:50→20:11)
[2021-06-10 05:06] LABS: Albumin 2.2 G/DL (3.4-5.0); Bilirubin,Total 1.7 MG/DL (0.20-1.00); Calcium 8.7 MG/DL (8.5-10.1); Ferritin 1000.5 ng/mL (8-252); Osmolality,Calculated 297.4 MOS/KG (273-304); Potassium 3.7 MMOL/L (3.5-5.1); Total Protein 7.6 G/DL (6.4-8.2)
[2021-06-10] MEDS: metroNIDAZOLE INJ 500 MG/100 ML PREMIX IV SCH ×3 (05:45→21:11)
[2021-06-10] MEDS ORDERED: amLODIPine 2.5 MG TABLET PO SCH (09:00)
[2021-06-10 09:26] LABS: Hemoglobin A1 (Alkaline) 97.8 % (96.5-98.5); Hemoglobin A2 (Alkaline) 2.2 % (1.5-3.5)
[2021-06-10] MEDS: ZINC GLUCONATE 50 MG TABLET PO SCH (09:47)
[2021-06-10] MEDS: FAMOTIDINE 20 MG/2 ML VIAL IV SCH (09:47)
[2021-06-10] MEDS: ASCORBIC ACID 500 MG TABLET PO SCH ×2 (09:48→20:11)
[2021-06-10] MEDS: CHOLECALCIFEROL 1,000 UNIT TABLET PO SCH (09:48)
[2021-06-10] MEDS: SODIUM CHLORIDE 0.9% 1,000 ML IV SCH ×2 (09:48→20:08)
[2021-06-11] MEDS: MORPHINE 2 MG/1 ML SYRINGE IV PRN ×2 (00:14→08:15)
[2021-06-11] MEDS: ENOXAPARIN 60 MG/0.6 ML SYRINGE SUBCUT SCH (00:14)
[2021-06-11] MEDS: INSULIN REGULAR 100 UNIT/ML SUBCUT SCH ×4 (00:20→17:19)
[2021-06-11] MEDS: methylPREDNISolone SOD SUC 40 MG/1 ML VIAL IV SCH ×3 (03:54→21:24)
[2021-06-11] MEDS: CEFEPIME 1,000 MG in SODIUM CHLORIDE 0.9% 100 ML IV SCH ×3 (03:59→21:24)
[2021-06-11 04:02] LABS: ABG Base Excess 0.1 MMOL/L (-2.5-2.5); ABG HCO3 24.4 MMOL/L (20-26); ABG Oxygen Saturation 92.5 % (95-100); ABG PCO2 33.7 MM HG (35-48); ABG PH 7.453 (7.35-7.45); ABG PO2 67.4 MM HG (80-95); ABG TCO2 21.6 MMOL/L (23-27)
[2021-06-11 05:25] LABS: Basophils % 0.1 % (0.0-0.8); Hematocrit 29.1 VOL% (35.7-47.0); Hemoglobin 9.5 GM/DL (12.0-16.0); Immature Granulocytes % 2.3 %; Immature Granulocytes Absolute 0.49 #; Lymphocytes # 0.6 10*3/uL (1.4-4.0); Lymphocytes % 2.8 % (21.3-54.2); Mean Corpuscular HGB Conc 32.6 GM/DL (32-36); Mean Corpuscular Volume 99.3 FL (87-102); Mean Platelet Volume 11.2 FL (9.6-12.0); NRBC # 0.62 10*3/uL; Neutrophils % 91.8 % (38.7-73.9); Platelet Count 174 T/CUMM (130-400); Red Blood Count 2.93 MC/CUMM (3.8-5.5); Red Cell Distribution Width 14.8 % (9.3-17.3); White Blood Count 21.4 T/CUMM (4-12)
[2021-06-11 05:40] LABS: Calcium 8.6 MG/DL (8.5-10.1); Osmolality,Calculated 299.3 MOS/KG (273-304); Potassium 3.8 MMOL/L (3.5-5.1)
[2021-06-11] MEDS: metroNIDAZOLE INJ 500 MG/100 ML PREMIX IV SCH (05:46)
[2021-06-11 05:51] LABS: Hypochromia Slight; Lymphocytes 1 % (20-55); Nucleated Red Blood Cells 5 (0-5); Platelet Estimate Normal; Segmented Neutrophils 98 % (50-85); Total Cells Counted 100
[2021-06-11] MEDS: SODIUM CHLORIDE 0.9% 1,000 ML IV SCH (07:36)
[2021-06-11] MEDS: ZINC GLUCONATE 50 MG TABLET PO SCH (08:14)
[2021-06-11] MEDS: CHOLECALCIFEROL 1,000 UNIT TABLET PO SCH (08:14)
[2021-06-11] MEDS: FAMOTIDINE 20 MG/2 ML VIAL IV SCH (08:14)
[2021-06-11] MEDS: ASCORBIC ACID 500 MG TABLET PO SCH ×2 (08:14→21:16)
[2021-06-11] MEDS: amLODIPine 10 MG TABLET PO SCH (08:29)
[2021-06-11] MEDS: metroNIDAZOLE 500 MG TABLET PO SCH ×3 (08:33→21:16)
[2021-06-11 08:42] LABS: ABG Base Excess -0.2 MMOL/L (-2.5-2.5); ABG HCO3 24.2 MMOL/L (20-26); ABG Oxygen Saturation 90.7 % (95-100); ABG PCO2 33.3 MM HG (35-48); ABG PH 7.453 (7.35-7.45); ABG PO2 62.1 MM HG (80-95); ABG TCO2 21.2 MMOL/L (23-27)
[2021-06-11] MEDS ORDERED: FUROSEMIDE 40 MG/4 ML VIAL IV ONE (08:48)
[2021-06-11] MEDS ORDERED: INSULIN GLARGINE 100 UNIT/ML SUBCUT SCH (09:00)
[2021-06-11] MEDS: hydrALAZINE 20 MG/1 ML VIAL IV PRN ×2 (15:05→22:00)
[2021-06-11 15:56] LABS: ABG Base Excess 3.7 MMOL/L (-2.5-2.5); ABG HCO3 27.7 MMOL/L (20-26); ABG Oxygen Saturation 96.2 % (95-100); ABG PH 7.512 (7.35-7.45); ABG PO2 80.1 MM HG (80-95); ABG TCO2 23.7 MMOL/L (23-27); Allen Test Positive; Pt O2 Delivery Device BIPAP
[2021-06-11 17:08] LABS: Bacteria,Urine Occasional /HPF (Few); Bilirubin,Urine Negative (Negative); Blood, Urine Small mg/dL (Negative); Glucose,Urine (UA) Negative (Negative); Hyaline Casts,Urine 13 /LPF (0-3); Ketones,Urine Negative (Negative); Mucus,Urine Occasional /LPF (Occasional); Nitrite,Urine Negative (Negative); Protein,Urine 30 MG/DL; RBC,Urine 74 /HPF (0-4); Urine Appearance CLEAR (Clear); Urine Color Yellow (Yellow); Urine Specific Gravity 1.018 (1.001-1.035); Urine Urobilinogen < 2.0 EU/DL (<2.0)
[2021-06-11] MEDS ORDERED: LORazepam 2 MG/1 ML VIAL ONE (22:23)
[2021-06-11] MEDS: LORazepam 2 MG/1 ML VIAL IV PRN (22:25)
[2021-06-12] MEDS: INSULIN REGULAR 100 UNIT/ML SUBCUT SCH ×4 (00:39→18:48)
[2021-06-12] MEDS: ENOXAPARIN 60 MG/0.6 ML SYRINGE SUBCUT SCH ×2 (01:13→20:49)
[2021-06-12 04:04] LABS: Basophils % 0.1 % (0.0-0.8); Hemoglobin 10.2 GM/DL (12.0-16.0); Immature Granulocytes % 3.1 %; Immature Granulocytes Absolute 0.74 #; Mean Corpuscular HGB Conc 32.9 GM/DL (32-36); Mean Platelet Volume 11.3 FL (9.6-12.0); NRBC # 1.23 10*3/uL; Neutrophils % 88.8 % (38.7-73.9); Platelet Count 193 T/CUMM (130-400); Red Blood Count 3.13 MC/CUMM (3.8-5.5); Red Cell Distribution Width 14.9 % (9.3-17.3)
[2021-06-12 04:22] LABS: Calcium 8.9 MG/DL (8.5-10.1); Ferritin 757.5 ng/mL (8-252); Osmolality,Calculated 302.7 MOS/KG (273-304); Potassium 3.3 MMOL/L (3.5-5.1)
[2021-06-12] MEDS: methylPREDNISolone SOD SUC 40 MG/1 ML VIAL IV SCH ×2 (04:31→15:43)
[2021-06-12] MEDS: CEFEPIME 1,000 MG in SODIUM CHLORIDE 0.9% 100 ML IV SCH ×3 (04:31→20:49)
[2021-06-12 04:50] LABS: ABG Base Excess 3.2 MMOL/L (-2.5-2.5); ABG HCO3 27.2 MMOL/L (20-26); ABG Oxygen Saturation 95.4 % (95-100); ABG PCO2 37.1 MM HG (35-48); ABG PH 7.468 (7.35-7.45); ABG PO2 78.1 MM HG (80-95); ABG TCO2 23.9 MMOL/L (23-27); Allen Test Positive; Pt O2 Delivery Device BIPAP
[2021-06-12 05:00] LABS: Lymphocytes 3 % (20-55); Nucleated Red Blood Cells 6 (0-5); Segmented Neutrophils 96 % (50-85); Total Cells Counted 100
[2021-06-12 05:03] LABS: Platelet Estimate Normal; Polychromasia Slight
[2021-06-12 05:04] LABS: Macrocytosis Slight
[2021-06-12 05:05] LABS: Schistocytes Few
[2021-06-12] MEDS ORDERED: HALOPERIDOL 5 MG/ML AMP IM ONE (07:45)
[2021-06-12] MEDS ORDERED: FUROSEMIDE 40 MG/4 ML VIAL IV ONE (08:44)
[2021-06-12] MEDS: FAMOTIDINE 20 MG/2 ML VIAL IV SCH ×2 (09:11→20:50)
[2021-06-12] MEDS: metroNIDAZOLE 500 MG TABLET PO SCH ×3 (09:31→20:49)
[2021-06-12] MEDS: amLODIPine 10 MG TABLET PO SCH (09:32)
[2021-06-12] MEDS: ASCORBIC ACID 500 MG TABLET PO SCH ×2 (09:32→20:50)
[2021-06-12] MEDS: CHOLECALCIFEROL 1,000 UNIT TABLET PO SCH (09:33)
[2021-06-12] MEDS: ZINC GLUCONATE 50 MG TABLET PO SCH (09:33)
[2021-06-12] MEDS: LORazepam 2 MG/1 ML VIAL IV PRN (10:59)
[2021-06-12] MEDS: ALBUTEROL/IPRATROPIUM 3 ML NEB RESP TX SCH ×2 (13:15→20:10)
[2021-06-12 13:38] LABS: ABG Base Excess 2.2 MMOL/L (-2.5-2.5); ABG HCO3 26.3 MMOL/L (20-26); ABG Oxygen Saturation 96.2 % (95-100); ABG PCO2 39.5 MM HG (35-48); ABG PH 7.434 (7.35-7.45); ABG PO2 86.4 MM HG (80-95); ABG TCO2 23.8 MMOL/L (23-27); Allen Test Positive; Pt O2 Delivery Device BIPAP
[2021-06-12] MEDS: DEXMEDETOMIDINE 200 MCG in SODIUM CHLORIDE 0.9% 48 ML IV PRN ×2 (13:41→20:49)
[2021-06-12] MEDS: CITALOPRAM 20 MG TABLET PO SCH (15:42)
[2021-06-12] MEDS: POTASSIUM BICARB EFFERVESCENT 20 MEQ TAB.EFF PER TUBE PRN (15:42)
[2021-06-12] MEDS ORDERED: ENOXAPARIN 60 MG/0.6 ML SYRINGE SUBCUT SCH (18:00)
[2021-06-12] MEDS: QUEtiapine 25 MG TABLET PO SCH (20:50)
[2021-06-13] MEDS: ALBUTEROL/IPRATROPIUM 3 ML NEB RESP TX SCH ×4 (00:10→18:06)
[2021-06-13] MEDS: INSULIN REGULAR 100 UNIT/ML SUBCUT SCH ×4 (00:48→18:14)
[2021-06-13] MEDS ORDERED: FUROSEMIDE 20 MG/2 ML VIAL IV ONE (01:02)
[2021-06-13] MEDS: DEXMEDETOMIDINE 200 MCG in SODIUM CHLORIDE 0.9% 48 ML IV PRN ×2 (01:57→07:58)
[2021-06-13 03:31] LABS: ABG Base Excess 4.9 MMOL/L (-2.5-2.5); ABG HCO3 28.4 MMOL/L (20-26); ABG Oxygen Saturation 92.6 % (95-100); ABG PCO2 37.4 MM HG (35-48); ABG PH 7.498 (7.35-7.45); ABG PO2 65.3 MM HG (80-95); ABG TCO2 29.5 MMOL/L (23-27)
[2021-06-13] MEDS: methylPREDNISolone SOD SUC 40 MG/1 ML VIAL IV SCH ×2 (03:57→15:40)
[2021-06-13] MEDS: CEFEPIME 1,000 MG in SODIUM CHLORIDE 0.9% 100 ML IV SCH ×3 (04:10→20:42)
[2021-06-13 04:38] LABS: Basophils % 0.1 % (0.0-0.8); Hematocrit 29.9 VOL% (35.7-47.0); Hemoglobin 9.5 GM/DL (12.0-16.0); Immature Granulocytes % 4.4 %; Immature Granulocytes Absolute 0.72 #; Lymphocytes # 0.9 10*3/uL (1.4-4.0); Lymphocytes % 5.2 % (21.3-54.2); Mean Corpuscular HGB Conc 31.8 GM/DL (32-36); Mean Platelet Volume 10.9 FL (9.6-12.0); Monocytes % 4.3 % (1.7-12.7); NRBC # 0.66 10*3/uL; Platelet Count 209 T/CUMM (130-400); Red Blood Count 2.93 MC/CUMM (3.8-5.5); White Blood Count 16.2 T/CUMM (4-12)
[2021-06-13 04:51] LABS: Albumin 2.3 G/DL (3.4-5.0); Bilirubin,Total 0.8 MG/DL (0.20-1.00); Calcium 8.9 MG/DL (8.5-10.1); Ferritin 677.7 ng/mL (8-252); Osmolality,Calculated 314.1 MOS/KG (273-304); Potassium 3.5 MMOL/L (3.5-5.1); Total Protein 6.8 G/DL (6.4-8.2)
[2021-06-13 05:04] LABS: Band Neutrophils 2 % (0-10); Hypochromia 1+; Lymphocytes 4 % (20-55); Nucleated Red Blood Cells 5 (0-5); Segmented Neutrophils 93 % (50-85); Total Cells Counted 100
[2021-06-13 05:05] LABS: Macrocytosis Slight; Polychromasia Slight; Target Cells Few
[2021-06-13] MEDS: POTASSIUM BICARB EFFERVESCENT 20 MEQ TAB.EFF PER TUBE PRN ×2 (05:28→10:01)
[2021-06-13] MEDS: LORazepam 2 MG/1 ML VIAL IV PRN ×2 (06:08→15:40)
[2021-06-13] MEDS ORDERED: OLANZapine 10 MG VIAL IM ONE (09:05)
[2021-06-13] MEDS: CITALOPRAM 20 MG TABLET PO SCH (10:00)
[2021-06-13] MEDS: ENOXAPARIN 60 MG/0.6 ML SYRINGE SUBCUT SCH ×2 (10:00→20:41)
[2021-06-13] MEDS: ZINC GLUCONATE 50 MG TABLET PO SCH (10:00)
[2021-06-13] MEDS: ASCORBIC ACID 500 MG TABLET PO SCH ×2 (10:00→20:42)
[2021-06-13] MEDS: CHOLECALCIFEROL 1,000 UNIT TABLET PO SCH (10:00)
[2021-06-13] MEDS: metroNIDAZOLE 500 MG TABLET PO SCH ×3 (10:00→20:42)
[2021-06-13] MEDS: FAMOTIDINE 20 MG/2 ML VIAL IV SCH ×2 (10:00→20:43)
[2021-06-13] MEDS: amLODIPine 10 MG TABLET PO SCH (10:00)
[2021-06-13] MEDS: QUEtiapine 25 MG TABLET PO SCH ×3 (10:00→21:52)
[2021-06-13] MEDS: FOLIC ACID 1 MG TABLET PO SCH (10:00)
[2021-06-13] MEDS: DEXMEDETOMIDINE 400 MCG in SODIUM CHLORIDE 0.9% 96 ML IV PRN (15:21)
[2021-06-14] MEDS: ALBUTEROL/IPRATROPIUM 3 ML NEB RESP TX SCH ×4 (00:15→19:40)
[2021-06-14] MEDS: INSULIN REGULAR 100 UNIT/ML SUBCUT SCH ×4 (00:34→19:40)
[2021-06-14] MEDS: DEXMEDETOMIDINE 400 MCG in SODIUM CHLORIDE 0.9% 96 ML IV PRN ×2 (01:39→12:42)
[2021-06-14] MEDS: methylPREDNISolone SOD SUC 40 MG/1 ML VIAL IV SCH ×3 (03:54→17:42)
[2021-06-14] MEDS: CEFEPIME 1,000 MG in SODIUM CHLORIDE 0.9% 100 ML IV SCH ×3 (04:23→21:47)
[2021-06-14 04:28] LABS: Basophils % 0.1 % (0.0-0.8); Hematocrit 32.6 VOL% (35.7-47.0); Hemoglobin 10.1 GM/DL (12.0-16.0); Lymphocytes # 0.6 10*3/uL (1.4-4.0); Lymphocytes % 3.6 % (21.3-54.2); Mean Corpuscular Volume 102.8 FL (87-102); Mean Platelet Volume 11.1 FL (9.6-12.0); NRBC # 0.33 10*3/uL; Neutrophils % 88.3 % (38.7-73.9); Platelet Count 254 T/CUMM (130-400); Red Blood Count 3.17 MC/CUMM (3.8-5.5); Red Cell Distribution Width 15.3 % (9.3-17.3); White Blood Count 15.9 T/CUMM (4-12)
[2021-06-14 04:44] LABS: Calcium 9.2 MG/DL (8.5-10.1); Osmolality,Calculated 319.7 MOS/KG (273-304); Potassium 3.8 MMOL/L (3.5-5.1)
[2021-06-14 04:54] LABS: ABG Base Excess 1.8 MMOL/L (-2.5-2.5); ABG HCO3 24.3 MMOL/L (20-26); ABG Oxygen Saturation 89.8 % (95-100); ABG PCO2 30.6 MM HG (35-48); ABG PH 7.517 (7.35-7.45); ABG PO2 56.1 MM HG (80-95); ABG TCO2 25.2 MMOL/L (23-27)
[2021-06-14 05:03] LABS: Hypochromia 1+; Lymphocytes 8 % (20-55); Microcytosis 1+; Nucleated Red Blood Cells 2 (0-5); Platelet Estimate Adequate; Segmented Neutrophils 90 % (50-85); Total Cells Counted 100
[2021-06-14] MEDS: LORazepam 2 MG/1 ML VIAL IV PRN ×2 (06:08→23:50)
[2021-06-14] MEDS: ENOXAPARIN 60 MG/0.6 ML SYRINGE SUBCUT SCH ×2 (08:20→21:46)
[2021-06-14] MEDS: FAMOTIDINE 20 MG/2 ML VIAL IV SCH ×2 (08:21→21:46)
[2021-06-14] MEDS: CHOLECALCIFEROL 1,000 UNIT TABLET PO SCH (08:22)
[2021-06-14] MEDS: FOLIC ACID 1 MG TABLET PO SCH (08:22)
[2021-06-14] MEDS: metroNIDAZOLE 500 MG TABLET PO SCH ×3 (08:22→21:46)
[2021-06-14] MEDS: QUEtiapine 25 MG TABLET PO SCH ×3 (08:22→22:03)
[2021-06-14] MEDS: CITALOPRAM 20 MG TABLET PO SCH (08:23)
[2021-06-14] MEDS: ZINC GLUCONATE 50 MG TABLET PO SCH (08:23)
[2021-06-14] MEDS: amLODIPine 10 MG TABLET PO SCH (08:23)
[2021-06-14] MEDS: ASCORBIC ACID 500 MG TABLET PO SCH ×2 (08:23→21:47)
[2021-06-14] MEDS ORDERED: FUROSEMIDE 40 MG/4 ML VIAL IV ONE (08:52)
[2021-06-14] MEDS ORDERED: METOPROLOL TARTRATE 5 MG/5 ML VIAL IV ONE (14:52)
[2021-06-15] MEDS: DEXMEDETOMIDINE 400 MCG in SODIUM CHLORIDE 0.9% 96 ML IV PRN ×2 (00:14→21:06)
[2021-06-15] MEDS: INSULIN REGULAR 100 UNIT/ML SUBCUT SCH ×5 (00:40→23:29)
[2021-06-15] MEDS: ALBUTEROL/IPRATROPIUM 3 ML NEB RESP TX SCH ×4 (00:55→19:17)
[2021-06-15] MEDS: methylPREDNISolone SOD SUC 40 MG/1 ML VIAL IV SCH ×3 (01:50→18:25)
[2021-06-15 04:01] LABS: Basophils % 0.1 % (0.0-0.8); Hematocrit 30.9 VOL% (35.7-47.0); Hemoglobin 9.6 GM/DL (12.0-16.0); Immature Granulocytes % 2.4 %; Immature Granulocytes Absolute 0.41 #; Lymphocytes # 0.4 10*3/uL (1.4-4.0); Lymphocytes % 2.5 % (21.3-54.2); Mean Corpuscular HGB Conc 31.1 GM/DL (32-36); Mean Platelet Volume 11.1 FL (9.6-12.0); Monocytes % 1.6 % (1.7-12.7); NRBC # 0.23 10*3/uL; Neutrophils % 93.4 % (38.7-73.9); Platelet Count 269 T/CUMM (130-400); Red Blood Count 2.97 MC/CUMM (3.8-5.5); Red Cell Distribution Width 15.6 % (9.3-17.3); White Blood Count 17.1 T/CUMM (4-12)
[2021-06-15] MEDS: CEFEPIME 1,000 MG in SODIUM CHLORIDE 0.9% 100 ML IV SCH ×3 (04:01→20:37)
[2021-06-15 04:15] LABS: Calcium 9.2 MG/DL (8.5-10.1); Potassium 4.3 MMOL/L (3.5-5.1)
[2021-06-15 04:21] LABS: Hypochromia 1+; Lymphocytes 3 % (20-55); Nucleated Red Blood Cells 2 (0-5); Ovalocytes Slight; Segmented Neutrophils 92 % (50-85); Target Cells Slight; Total Cells Counted 100
[2021-06-15 04:22] LABS: Microcytosis 1+; Polychromasia Slight
[2021-06-15 07:44] LABS: ABG Base Excess 2.5 MMOL/L (-2.5-2.5); ABG HCO3 26.7 MMOL/L (20-26); ABG Oxygen Saturation 97.8 % (95-100); ABG PCO2 41.9 MM HG (35-48); ABG TCO2 24.8 MMOL/L (23-27)
[2021-06-15] MEDS: ENOXAPARIN 60 MG/0.6 ML SYRINGE SUBCUT SCH ×2 (08:51→20:37)
[2021-06-15] MEDS: CHOLECALCIFEROL 1,000 UNIT TABLET PO SCH (08:51)
[2021-06-15] MEDS: ZINC GLUCONATE 50 MG TABLET PO SCH (08:51)
[2021-06-15] MEDS: ASCORBIC ACID 500 MG TABLET PO SCH ×2 (08:51→20:38)
[2021-06-15] MEDS: metroNIDAZOLE 500 MG TABLET PO SCH ×3 (08:52→20:39)
[2021-06-15] MEDS: amLODIPine 10 MG TABLET PO SCH (08:52)
[2021-06-15] MEDS: FOLIC ACID 1 MG TABLET PO SCH (08:52)
[2021-06-15] MEDS: FAMOTIDINE 20 MG/2 ML VIAL IV SCH ×2 (08:53→20:37)
[2021-06-16] MEDS: ALBUTEROL/IPRATROPIUM 3 ML NEB RESP TX SCH ×4 (00:44→19:16)
[2021-06-16] MEDS: methylPREDNISolone SOD SUC 40 MG/1 ML VIAL IV SCH ×3 (01:01→17:07)
[2021-06-16 04:23] LABS: ABG Base Excess 2.9 MMOL/L (-2.5-2.5); ABG Oxygen Saturation 96.8 % (95-100); ABG PCO2 46.2 MM HG (35-48); ABG PH 7.395 (7.35-7.45); ABG PO2 94.4 MM HG (80-95); ABG TCO2 25.8 MMOL/L (23-27); Allen Test Positive; Pt O2 Delivery Device Other
[2021-06-16 04:48] LABS: Basophils % 0.1 % (0.0-0.8); Hematocrit 30.2 VOL% (35.7-47.0); Hemoglobin 9.2 GM/DL (12.0-16.0); Immature Granulocytes % 2.1 %; Immature Granulocytes Absolute 0.34 #; Lymphocytes # 0.3 10*3/uL (1.4-4.0); Lymphocytes % 1.8 % (21.3-54.2); Mean Corpuscular HGB Conc 30.5 GM/DL (32-36); Mean Corpuscular Volume 105.2 FL (87-102); Mean Platelet Volume 10.8 FL (9.6-12.0); Monocytes % 1.5 % (1.7-12.7); NRBC # 0.11 10*3/uL; Neutrophils % 94.5 % (38.7-73.9); Platelet Count 288 T/CUMM (130-400); Red Blood Count 2.87 MC/CUMM (3.8-5.5); Red Cell Distribution Width 15.6 % (9.3-17.3); White Blood Count 16.5 T/CUMM (4-12)
[2021-06-16] MEDS: CEFEPIME 1,000 MG in SODIUM CHLORIDE 0.9% 100 ML IV SCH ×3 (04:54→21:16)
[2021-06-16 05:02] LABS: Calcium 9.9 MG/DL (8.5-10.1); Osmolality,Calculated 315.4 MOS/KG (273-304); Potassium 5.1 MMOL/L (3.5-5.1)
[2021-06-16 05:15] LABS: Band Neutrophils 1 % (0-10); Hypochromia 1+; Lymphocytes 2 % (20-55); Nucleated Red Blood Cells 2 (0-5); Segmented Neutrophils 96 % (50-85); Total Cells Counted 100
[2021-06-16 05:16] LABS: Microcytosis 1+; Ovalocytes Slight; Target Cells Slight
[2021-06-16] MEDS: INSULIN REGULAR 100 UNIT/ML SUBCUT SCH ×4 (05:39→23:30)
[2021-06-16] MEDS: FAMOTIDINE 20 MG/2 ML VIAL IV SCH ×2 (08:51→21:17)
[2021-06-16] MEDS: amLODIPine 10 MG TABLET PO SCH (09:01)
[2021-06-16] MEDS: ZINC GLUCONATE 50 MG TABLET PO SCH (09:01)
[2021-06-16] MEDS: ENOXAPARIN 60 MG/0.6 ML SYRINGE SUBCUT SCH ×2 (09:01→21:17)
[2021-06-16] MEDS: ASCORBIC ACID 500 MG TABLET PO SCH ×2 (09:01→21:17)
[2021-06-16] MEDS: CHOLECALCIFEROL 1,000 UNIT TABLET PO SCH (09:01)
[2021-06-16] MEDS: FOLIC ACID 1 MG TABLET PO SCH (09:01)
[2021-06-17] MEDS: methylPREDNISolone SOD SUC 40 MG/1 ML VIAL IV SCH ×3 (01:30→16:39)
[2021-06-17] MEDS: ALBUTEROL/IPRATROPIUM 3 ML NEB RESP TX SCH ×4 (01:56→19:50)
[2021-06-17 03:50] LABS: ABG Base Excess 5.7 MMOL/L (-2.5-2.5); ABG HCO3 29.4 MMOL/L (20-26); ABG Oxygen Saturation 88.2 % (95-100); ABG PCO2 39.3 MM HG (35-48); ABG PH 7.483 (7.35-7.45); ABG PO2 55.9 MM HG (80-95); ABG TCO2 26.9 MMOL/L (23-27); Allen Test Positive; Pt O2 Delivery Device Other
[2021-06-17 05:19] LABS: Basophils % 0.1 % (0.0-0.8); Hematocrit 30.2 VOL% (35.7-47.0); Hemoglobin 9.5 GM/DL (12.0-16.0); Immature Granulocytes Absolute 0.62 #; Lymphocytes # 0.4 10*3/uL (1.4-4.0); Lymphocytes % 2.2 % (21.3-54.2); Mean Corpuscular HGB Conc 31.5 GM/DL (32-36); Monocytes % 2.9 % (1.7-12.7); NRBC # 0.09 10*3/uL; Neutrophils % 90.8 % (38.7-73.9); Platelet Count 308 T/CUMM (130-400); Red Blood Count 2.96 MC/CUMM (3.8-5.5); Red Cell Distribution Width 15.1 % (9.3-17.3); White Blood Count 15.6 T/CUMM (4-12)
[2021-06-17 05:53] LABS: Calcium 9.3 MG/DL (8.5-10.1); Osmolality,Calculated 296.1 MOS/KG (273-304); Potassium 4.5 MMOL/L (3.5-5.1)
[2021-06-17] MEDS: INSULIN REGULAR 100 UNIT/ML SUBCUT SCH ×3 (06:15→17:56)
[2021-06-17 06:44] LABS: Band Neutrophils 1 % (0-10); Lymphocytes 5 % (20-55); Metamyelocytes 1 %; Myelocytes 1 %; Nucleated Red Blood Cells 2 (0-5); Platelet Estimate Normal; Segmented Neutrophils 90 % (50-85); Total Cells Counted 100
[2021-06-17 06:45] LABS: Anisocytosis 2+; Macrocytosis 2+
[2021-06-17] MEDS: FOLIC ACID 1 MG TABLET PO SCH (10:18)
[2021-06-17] MEDS: ZINC GLUCONATE 50 MG TABLET PO SCH (10:18)
[2021-06-17] MEDS: CHOLECALCIFEROL 1,000 UNIT TABLET PO SCH (10:18)
[2021-06-17] MEDS: ENOXAPARIN 60 MG/0.6 ML SYRINGE SUBCUT SCH ×2 (10:18→21:52)
[2021-06-17] MEDS: FAMOTIDINE 20 MG TABLET PO SCH ×2 (10:19→21:52)
[2021-06-17] MEDS: ASCORBIC ACID 500 MG TABLET PO SCH ×2 (10:19→21:52)
[2021-06-17] MEDS: amLODIPine 10 MG TABLET PO SCH (10:19)
[2021-06-17] MEDS: ACETAMINOPHEN 325 MG TABLET PO PRN (16:39)
[2021-06-17] MEDS: ZALEPLON 5 MG CAPSULE PO SCH (22:56)
[2021-06-18] MEDS: INSULIN REGULAR 100 UNIT/ML SUBCUT SCH ×5 (00:09→23:35)
[2021-06-18] MEDS: methylPREDNISolone SOD SUC 40 MG/1 ML VIAL IV SCH ×3 (01:22→17:37)
[2021-06-18] MEDS: ALBUTEROL/IPRATROPIUM 3 ML NEB RESP TX SCH ×4 (01:45→19:39)
[2021-06-18] MEDS: ENOXAPARIN 60 MG/0.6 ML SYRINGE SUBCUT SCH ×2 (10:06→22:06)
[2021-06-18] MEDS: CHOLECALCIFEROL 1,000 UNIT TABLET PO SCH (10:07)
[2021-06-18] MEDS: ASCORBIC ACID 500 MG TABLET PO SCH ×2 (10:07→22:06)
[2021-06-18] MEDS: amLODIPine 10 MG TABLET PO SCH (10:07)
[2021-06-18] MEDS: FOLIC ACID 1 MG TABLET PO SCH (10:07)
[2021-06-18] MEDS: ZINC GLUCONATE 50 MG TABLET PO SCH (10:08)
[2021-06-18] MEDS: FAMOTIDINE 20 MG TABLET PO SCH ×2 (10:08→22:06)
[2021-06-18] MEDS: ZALEPLON 5 MG CAPSULE PO SCH (22:06)
[2021-06-19] MEDS: ALBUTEROL/IPRATROPIUM 3 ML NEB RESP TX SCH ×4 (00:36→20:04)
[2021-06-19] MEDS: methylPREDNISolone SOD SUC 40 MG/1 ML VIAL IV SCH ×3 (01:10→17:41)
[2021-06-19] MEDS: INSULIN REGULAR 100 UNIT/ML SUBCUT SCH ×3 (05:28→17:41)
[2021-06-19] MEDS: ENOXAPARIN 60 MG/0.6 ML SYRINGE SUBCUT SCH ×2 (10:20→20:47)
[2021-06-19] MEDS: FAMOTIDINE 20 MG TABLET PO SCH ×2 (10:21→20:48)
[2021-06-19] MEDS: ASCORBIC ACID 500 MG TABLET PO SCH ×2 (10:21→20:48)
[2021-06-19] MEDS: FOLIC ACID 1 MG TABLET PO SCH (10:21)
[2021-06-19] MEDS: amLODIPine 10 MG TABLET PO SCH (10:21)
[2021-06-19] MEDS: ZINC GLUCONATE 50 MG TABLET PO SCH (10:22)
[2021-06-19] MEDS: CHOLECALCIFEROL 1,000 UNIT TABLET PO SCH (10:22)
[2021-06-19] MEDS: ZALEPLON 5 MG CAPSULE PO SCH (20:47)
[2021-06-20] MEDS: INSULIN REGULAR 100 UNIT/ML SUBCUT SCH ×4 (00:53→17:48)
[2021-06-20] MEDS: methylPREDNISolone SOD SUC 40 MG/1 ML VIAL IV SCH ×3 (00:53→16:14)
[2021-06-20] MEDS: ALBUTEROL/IPRATROPIUM 3 ML NEB RESP TX SCH ×4 (03:01→19:24)
[2021-06-20] MEDS: ENOXAPARIN 60 MG/0.6 ML SYRINGE SUBCUT SCH ×2 (10:20→20:45)
[2021-06-20] MEDS: CHOLECALCIFEROL 1,000 UNIT TABLET PO SCH (10:21)
[2021-06-20] MEDS: ASCORBIC ACID 500 MG TABLET PO SCH ×2 (10:21→20:42)
[2021-06-20] MEDS: FAMOTIDINE 20 MG TABLET PO SCH ×2 (10:22→20:42)
[2021-06-20] MEDS: amLODIPine 10 MG TABLET PO SCH (10:22)
[2021-06-20] MEDS: FOLIC ACID 1 MG TABLET PO SCH (10:22)
[2021-06-20] MEDS: ZINC GLUCONATE 50 MG TABLET PO SCH (10:46)
[2021-06-20] MEDS: oxyCODONE/ACETAMINOPHEN 5-325 MG TABLET PO PRN (20:42)
[2021-06-20] MEDS: ZALEPLON 5 MG CAPSULE PO SCH (20:42)
[2021-06-21] MEDS: INSULIN REGULAR 100 UNIT/ML SUBCUT SCH ×4 (00:25→18:31)
[2021-06-21] MEDS: methylPREDNISolone SOD SUC 40 MG/1 ML VIAL IV SCH ×3 (00:25→18:31)
[2021-06-21] MEDS: ALBUTEROL/IPRATROPIUM 3 ML NEB RESP TX SCH ×4 (07:11→19:24)
[2021-06-21] MEDS: ZINC GLUCONATE 50 MG TABLET PO SCH (08:45)
[2021-06-21] MEDS: ENOXAPARIN 60 MG/0.6 ML SYRINGE SUBCUT SCH ×2 (08:45→20:30)
[2021-06-21] MEDS: FOLIC ACID 1 MG TABLET PO SCH (08:45)
[2021-06-21] MEDS: FAMOTIDINE 20 MG TABLET PO SCH ×2 (08:45→20:30)
[2021-06-21] MEDS: CHOLECALCIFEROL 1,000 UNIT TABLET PO SCH (08:45)
[2021-06-21] MEDS: ASCORBIC ACID 500 MG TABLET PO SCH ×2 (08:45→20:30)
[2021-06-21] MEDS: amLODIPine 10 MG TABLET PO SCH (08:45)
[2021-06-21] MEDS: oxyCODONE/ACETAMINOPHEN 5-325 MG TABLET PO PRN ×2 (11:32→20:31)
[2021-06-21] MEDS: ZALEPLON 5 MG CAPSULE PO SCH (20:30)
[2021-06-22] MEDS: ALBUTEROL/IPRATROPIUM 3 ML NEB RESP TX SCH ×3 (00:01→13:24)
[2021-06-22] MEDS: INSULIN REGULAR 100 UNIT/ML SUBCUT SCH ×3 (00:23→11:59)
[2021-06-22] MEDS: methylPREDNISolone SOD SUC 40 MG/1 ML VIAL IV SCH ×2 (00:23→08:32)
[2021-06-22 07:09] LABS: Basophils % 0.1 % (0.0-0.8); Hematocrit 28.1 VOL% (35.7-47.0); Hemoglobin 8.9 GM/DL (12.0-16.0); Immature Granulocytes % 2.4 %; Immature Granulocytes Absolute 0.43 #; Lymphocytes # 0.3 10*3/uL (1.4-4.0); Lymphocytes % 1.9 % (21.3-54.2); Mean Corpuscular HGB Conc 31.7 GM/DL (32-36); Mean Corpuscular Volume 101.4 FL (87-102); Mean Platelet Volume 11.8 FL (9.6-12.0); Monocytes % 4.6 % (1.7-12.7); NRBC # 0.03 10*3/uL; Platelet Count 267 T/CUMM (130-400); Red Blood Count 2.77 MC/CUMM (3.8-5.5); Red Cell Distribution Width 14.7 % (9.3-17.3); White Blood Count 18.2 T/CUMM (4-12)
[2021-06-22 07:30] LABS: Lymphocytes 2 % (20-55); Segmented Neutrophils 95 % (50-85); Total Cells Counted 100
[2021-06-22 07:31] LABS: Hypochromia 1+; Microcytosis 1+; Platelet Estimate Adequate
[2021-06-22 07:40] LABS: Calcium 9.2 MG/DL (8.5-10.1); Osmolality,Calculated 293.1 MOS/KG (273-304); Potassium 3.7 MMOL/L (3.5-5.1)
[2021-06-22] MEDS: ASCORBIC ACID 500 MG TABLET PO SCH (08:31)
[2021-06-22] MEDS: ZINC GLUCONATE 50 MG TABLET PO SCH (08:31)
[2021-06-22] MEDS: ENOXAPARIN 60 MG/0.6 ML SYRINGE SUBCUT SCH (08:31)
[2021-06-22] MEDS: CHOLECALCIFEROL 1,000 UNIT TABLET PO SCH (08:31)
[2021-06-22] MEDS: FOLIC ACID 1 MG TABLET PO SCH (08:32)
[2021-06-22] MEDS: FAMOTIDINE 20 MG TABLET PO SCH (08:32)
[2021-06-22] MEDS: amLODIPine 10 MG TABLET PO SCH (08:32)
[2021-06-22 16:27] VITALS: BP 128/78
== END 2021-06-22 19:39 | DRG 208 ==
LOC: EDUNIT# → N.ED 09:35 → N.EDINP 11:07 → SUATTDRO 11:07 → N.ICU 16:32 → N.5E 06-16 18:44
PROVIDERS: ADMIT Internal Medicine; ATTEND Family Medicine